=== PATIENT | male | born 1980 | race Caucasian/White ===

== ENCOUNTER 2025-04-09 17:59 | Emergency (ER) | payer BC, SELFPAY ==
[2025-04-09 18:03] VITALS: BP 140/95
[2025-04-09 18:24] LABS: Hematocrit 43.8 % (39.0-52.0); Hemoglobin 15.3 g/dL (13.0-18.0); Mean Corp Hgb Conc. 34.9 g/dL (33.0-37.0); Mean Corpuscular Volume 88.0 fL (80.0-94.0); Nucleated Red Blood Cells % 0 % (-); Platelet Count 217 10^3/uL (130-400); Red Cell Dist. Width 12.6 % (11.5-14.5)
[2025-04-09 18:35] LABS: ALT (SGPT) 42 U/L (0-50); AST (SGOT) 33 U/L (17-59); Albumin 5.0 g/dl (3.5-5.0); Alkaline Phosphatase 48 U/L (38-126); Blood Urea Nitrogen 18 mg/dl (9-20); Calcium 9.6 mg/dl (8.4-10.2); Carbon Dioxide 26 mmol/L (22-30); Chloride 105 mmol/L (98-107); Glucose 98 mg/dl (70-99); Lipase 107 U/L (23-300); Potassium 4.1 mmol/L (3.5-5.1); Sodium 139 mmol/L (135-145); Total Protein 7.4 g/dl (6.3-8.2); eGFR > 60.00
--- NOTE | 2025-04-09 20:29 | ED.GENMED ---
History of Present Illness
General
Chief Complaint: Abdominal Symptoms
Time Seen by Provider: 04/09/25 20:29
History of Present Illness
History of Present Illness:
FOCUSED PAST MEDICAL HISTORY
- GERD, asthma
REVIEW OF OLD RECORDS
- No old records available for review in [facility]
Note:
CHIEF COMPLAINT(S)
Upper abdominal pain, difficulty sleeping due to pain.
HISTORY OF PRESENT ILLNESS
The patient is a 44-year-old male presenting with upper abdominal pain localized to the epigastric region, which is described as being above the belly button and below the chest. The patient states the pain is severe enough to prevent sleep, as
mentioned, 'last night I couldnt sleep, it was still really bad.' The onset of this pain was initially managed with medication referred to as 'Prylilis,' provided by a primary care provider, but the patient reports persistent symptoms despite this
treatment. The patient also describes an inability to find a comfortable position when resting. There is no associated chest pain or tightness and no pain radiating to the back or other regions. The patient denies any previous gastrointestinal
procedures such as endoscopy but expresses an interest in undergoing a colonoscopy. The white blood cell count and other blood work performed tonight were reported as normal.
The patient reports discomfort when pressing on the lower abdomen but not in the kidney region. The possibility of undergoing a computed tomography (CT) scan with intravenous contrast was suggested to rule out any serious underlying conditions. The
patient denies chest tightness, any history of abdominal surgery, and further notes no nausea or vomiting at the moment, though nausea comes and goes. He reports a normal appetite and denies any recent changes in bowel habits.
ADDITIONAL HISTORY OBTAINED FROM SOURCES OTHER THAN THE PATIENT
The mentioned that the patient is a high pain tolerance individual, which contributed to his decision to present to the emergency department despite the pain.
PAST MEDICAL AND SURGICAL HISTORY
None reported in conversation.
SOCIAL DETERMINANTS AFFECTING HEALTH
The patient denies any alcohol or drug use due to being drug-tested at work.
REVIEW OF SYSTEMS
- Gastrointestinal: Upper abdominal pain, localized in the epigastric area, no vomiting, intermittent nausea.
- Constitutional: Difficulty sleeping due to discomfort.
- Respiratory: Denies chest pain or tightness.
- Neurological: No specific complaint discussed.
- Musculoskeletal: No specific complaint discussed.
PHYSICAL EXAM
General: Alert, no acute distress.
Skin: Warm, dry.
Head: Normocephalic, atraumatic.
Neck: Supple, trachea midline.
Eye, Ears, Nose, Mouth and Throat: Oral mucosa moist.
Cardiovascular: Normal peripheral perfusion, No edema.
Respiratory: Respirations are non-labored.
Gastrointestinal: Abdomen nondistended, minimal periumbilical and upper abdominal tenderness. Minimal if any left lower quadrant tenderness
Back: Normal range of motion, Normal alignment.
Musculoskeletal: Normal range of motion, normal strength.
Neurological: Alert and oriented to person, place, time, and situation, No focal neurological deficit observed.
Psychiatric: Cooperative, appropriate mood & affect.
PROBLEM LIST
Acute: Upper abdominal pain, difficulty sleeping due to pain.
PLAN
1. Perform a CT scan with intravenous contrast to rule out significant abdominal pathology.
2. Administer intravenous Pepcid for discomfort relief.
3. Obtain an electrocardiogram (EKG) due to the proximity of the pain to the chest area.
4. Consider follow-up with a [employer] Professor for possible endoscopy and colonoscopy.
5. Reassess after completion of imaging and tests for further management.
DIFFERENTIAL DIAGNOSIS
The differential diagnosis includes, in no particular order and is not limited to:
1. Peptic ulcer disease
2. Gastritis
3. Gastroesophageal reflux disease (GERD)
4. Gallbladder disease (cholelithiasis or cholecystitis)
5. Pancreatitis
6. Hepatic disorders
7. Abdominal aortic aneurysm
8. Myocardial infarction (consideration due to proximity to chest)
9. Cardiac ischemia
10. Esophagitis
RADIOLOGY
- CT imaging obtained
EKG
- Sinus 53, normal axis, no acute ST abnormality
LABS
- CBC normal, chemistries unremarkable, lipase and LFTs normal
UPDATE
-SUMMARY OF ENCOUNTER
The patient was seen in the emergency department due to upper abdominal pain that has persisted despite medication. A CT scan was performed, revealing no anatomical abnormalities, infections, or hernias in the abdominal region that could account for
the pain. The patients current medication regimen includes omeprazole (generic for Prilosec), which the patient began four days ago without significant relief. Our differential diagnosis includes gastrointestinal issues potentially related to
stomach acid. Additionally, there was a discussion about the patient experiencing contrast extravasation following imaging, advised to use either cold or warmth on the site without a clear consensus on the best approach. The patient expressed
concern about the long wait for a GI consult and plans to undergo a colonoscopy due to family history concerns.
EMERGENCY TREATMENTS ADMINISTERED
No emergency treatments were mentioned.
PLAN
Continue taking omeprazole as previously prescribed.
Reach out to a Gastroenterology office to expedite the process of scheduling an endoscopy and colonoscopy.
Advise keeping the arm elevated where the contrast extravasation occurred.
Encourage use of warmth or cold on the site of extravasation as needed for comfort.
Return to the emergency department if the arm swells significantly or shows signs of decreased circulation (e.g., fingers turning blue).
PATIENT EDUCATION AND COUNSELING
The patient was educated on the implications of the CT scan findings, which were normal, indicating that the pain may be related to gastrointestinal issues. Explained that currently, there are no anatomical findings of concern such as masses or
hernias. The importance of follow-up with a Asian Studies Professor for further assessment, including endoscopy and colonoscopy, was emphasized, especially considering family history.
FOLLOW-UP INSTRUCTIONS
The patient was advised to contact their Asian Studies Professor to schedule a routine colonoscopy and urgent endoscopy. An expedited referral attempt will be made by reaching out to the GI office. If pain worsens or additional symptoms arise, the
patient should return for further evaluation.
MEDICATION RECONCILIATION
Patient is taking omeprazole as previously prescribed and advised to continue the course.
MEDICAL DECISION MAKING
-Complexity of Data Reviewed:
Considered conditions affecting care including possible gastrointestinal conditions such as peptic ulcer disease, gastritis, GERD, gallbladder disease, pancreatitis, hepatic disorders, abdominal aortic aneurysm, myocardial infarction, cardiac
ischemia, esophagitis.
-Data:
Category [address] scan reviewed independently, showing no significant abnormalities or concerns in the abdomen.
Category 2
Clinical information was obtained from the patient�s who noted he is a high pain tolerance individual.
Category 3
Discussion of management and expedited referral with [employer] Studies Professor planned.
-Risk:
Consideration of Admission/Observation: Escalation of care including admission/observation was considered given the complexity and risk of the patients presenting complaint. However, the patient is deemed safe for outpatient management with close
follow-up. The work-up was reassuring, revealing no acute or life-threatening conditions. The patient agrees to this plan and is reliable for follow-up. Prescription medication was continued as noted.
DIAGNOSIS
Gastroesophageal reflux disease (GERD) - K21.9
Abdominal Pain, Unspecified - R10.9
Contrast extravasation left upper extremity
During CT, there was contrast extravasation of the left upper extremity. Cool and then warm compresses were tried along with elevation. On reassessment, there is no evidence for compartment syndrome and distal pulses are excellent. He appears
comfortable at time of discharge. He will continue Prilosec for now and I also reached out to GI to arrange close outpatient follow-up.
Phy Exam
Physical Exam
Physical Exam:
See HPI
Course
Orders/Labs/Results
Orders:
Orders
04/09/25 18:14
Complete Blood Count/With Diff Urgent
Comprehensive Metabolic Panel Urgent
Lipase Urgent
04/09/25 20:36
0.9% Sodium Chloride 1000 ml [Nss] 1,000 ml IV BOLUS
Famotidine [Pepcid] 20 mg IV NOW STA
04/09/25 20:37
CT Abd/pelvis W Iv Cont Urgent
Comment:
Reason For Exam: epigastric periumbilical pain severe
04/09/25 20:45
Electrocardiogram (*1) Urgent
Reason for Study: Abdominal Pain
EKG- Treatment ONCE
Abnormal Lab Results
04/09/25
18:14
MPV 10.9 H fL
(7.4-10.4)
04/09/25 18:14
04/09/25 18:14
Vital Signs
Initial and Last Documented VS:
Initial Vital Signs
Temp Pulse Resp BP Pulse Ox
36.9 C 80 18 140/95 99
04/09/25 18:03 04/09/25 18:03 04/09/25 18:03 04/09/25 18:03 04/09/25 18:03
Last Documented Vital Signs
Temp Pulse Resp BP Pulse Ox
36.9 C 64 16 135/92 99
04/09/25 18:03 04/09/25 21:45 04/09/25 21:30 04/09/25 21:00 04/09/25 20:29
*Pulse Oximetry
SaO2: 99
Oxygen Mode of Delivery: Room air
Patient hypoxic: no
*Critical Care Note
Total Time (30-74mins, 75-104mins- exclusive of procedures): Not Applicable
ED Attending Note
-
Portions of this chart may have been created with voice recognition software.� Occasional wrong word or��sound alike� substitutions may have occurred due to the inherent limitations of voice recognition software.
Discharge Plan
Departure
Referrals:
Jonathan Samuels MD [Family Provider, Family Practice]
Interventions
Interventions:
*Risk Screen - Suicide Last Done: 04/09/25 18:03
*General Assessment Last Done: 04/09/25 18:03
*Neglect/Abuse Screening Last Done: 04/09/25 18:03
LV-Tmkpad-Tqbkkvbjmr Assessment Last Done: 04/09/25 20:53
Discharge Date and Time
Print Language: BENGALI
[2025-04-09] MEDS: PEPCID 20 MG IV (20:46)
[2025-04-09] MEDS: NSS 1000 IV (20:46)
[2025-04-09 20:52] VITALS: BP 138/90
[2025-04-09 21:00] VITALS: BP 135/92
== END 2025-04-09 23:37 | disposition home or self-care (01) ==
LOC: EMR 17:59
PROVIDERS: Emergency Medicine; EMERGENCY PHYSICIAN Emergency Medicine; FAMILY PHYSICIAN Family Medicine
DX: R10.13 Epigastric pain (principal); K21.9 Gastro-esophageal reflux disease without esophagitis; J45.909 Unspecified asthma, uncomplicated; T80.818A Extravasation of other vesicant agent, initial encounter; X58.XXXA Exposure to other specified factors, initial encounter
CPT/HCPCS: 96374; 99284; 74177; 80053; 83690; 85025; 93005; Q9967